=== PATIENT | female | born 1965 | race African-American/Black ===

== ENCOUNTER 2021-06-26 10:22 | Day surgery (SDC) | payer MEDICARE, MEDICAID ==
[2021-06-22 15:49] VITALS: BMI 39.6
[2021-06-26] MEDS ORDERED: Lidocaine 1% MPF 2 ML VIAL ONE (10:30)
[2021-06-26] MEDS ORDERED: Bupivacaine PF 0.5% 30 ML VIAL ONE (11:04)
[2021-06-26] MEDS ORDERED: Neomycin-Polymyxin 1 ML AMP ONE (11:04)
[2021-06-26 11:16] LABS: #Basophils 0.1 10x3/uL (0.0-0.2); #Eosinphils 0.1 10x3/uL (0.0-0.5); #Monocytes 0.8 10x3/uL (0.0-1.1); #Neutrophils 8.6 10x3/uL (1.5-8.4); %Basophils 0.6 % (0.0-2.0); %Eosinophils 0.7 % (0.0-6.0); %Lymphocytes 29.9 % (18.0-47.0); %Monocytes 5.7 % (0.0-10.0); %Neutrophils 62.7 % (40.0-75.0); Hemoglobin 14.7 g/dL (12.0-15.5); Mean Corpuscular HGB CONC 34.8 g/dL (32.0-36.0); Mean Corpuscular Hemoglobin 28.1 pg (27.0-33.0); Mean Corpuscular Volume 80.7 fl (81.6-98.3); Platelet Count 281 10x3/uL (150-450); RBC Distribution Width 14.5 % (11.5-14.5); Red Blood Cell (RBC) Count 5.23 10x6/uL (3.90-5.03); White Blood Cell (WBC) Count 13.8 10x3/uL (3.5-10.5)
[2021-06-26] MEDS ORDERED: PROPOFOL 20 ML ONE (11:49)
[2021-06-26] MEDS ORDERED: Lidocaine 2% PF 5 ML VIAL ONE (11:49)
[2021-06-26] MEDS ORDERED: ceFAZolin 2 GM/Dextrose 50 ML IVPB ONE (12:07)
[2021-06-26] MEDS ORDERED: Fentanyl 100 MCG/2 ML VIAL ONE (12:20)
[2021-06-26] MEDS ORDERED: Ondansetron PF 4 MG/2 ML Vial ONE (12:21)
[2021-06-26] MEDS ORDERED: Dexamethasone 4 mg/ml Vial ONE (12:46)
[2021-06-26] MEDS ORDERED: HYDROcodone/Acetaminophen 5/325 mg Tablet ONE (14:16)
== END 2021-06-26 14:20 | disposition home or self-care (01) ==
LOC: CSHSDC 10:22
PROVIDERS: ATTEND Podiatrist Foot & Ankle Surgery
PROC: 0LBV0ZZ Excision of Right Foot Tendon, Open Approach (ICD-10-PCS; principal; 2021-06-26)
PROC: 0KNV0ZZ Release Right Foot Muscle, Open Approach (ICD-10-PCS; 2021-06-26)
DX: M67.471 Ganglion, right ankle and foot (principal); D21.21 Benign neoplasm of connective and other soft tissue of right lower limb, including hip
CPT/HCPCS: 36415; 85025; 88304; 88305; J0690; J1100; J2001; J2405; J2704; J3010; S0020